=== PATIENT | male | born 1945 | race Caucasian/White ===

== ENCOUNTER 2016-11-02 05:27 | Day surgery (SDC) | payer MEDICARE, OTHER ==
[~2016-11-02] VITALS: Ht 180.3 cm; Wt 101.3 kg
[~2016-11-02 05:27] MED LIST: ASPI-557 PO; ATOR10TA64 PO; FAMO20TA7 PO; NADO40TA PO; VENL150C2 PO; [UNRECOGNIZED DRUG - CODE] PO
--- OUTSIDE RECORDS SUMMARY | 2016-11-02 05:32 | XMS REPORT | Continuity of Care Document ---
Author Author [facility] Organization [facility] Address Unknown Phone Unavailable Allergies Active Description Code Type Severity Reaction Onset Reported/Identified Relationship to Patient Clinical Status Yes ibuprofen NKMA N/A N/A 12/16/2013 Medications Problems Procedures Results Encounters ACCT No. Visit Date/Time Discharge Status Pt. Type Provider Facility Loc./Unit Complaint [id number] 09/16/2014 13:36:00 2014 23:59:00 DIS Outpatient [facility] CP MARIIA CPAP/SUPPLIES/PST BLOX
--- OUTSIDE RECORDS SUMMARY | 2016-11-02 05:32 | XMS REPORT | Referral Summary ---
Author Author [facility] [place] Organization [facility] [place] Address Unknown Phone Unavailable Care Team Providers Care Bilingual Recruiter Name Role Phone Katharina Hennessy Primary Care Physician [phone] Encounter Date(s): 11/17/15 - 11/17/15 [facility] [place] [address], [place] [address] Discharge Diagnosis: CHRISTIANNE on CPAP Discharge Disposition: 01-Home or Self Care Attending Physician: Camila Rg Admitting Physician: Camila Rg Vital Signs Most recent to 1 oldest [Reference Range]: Peripheral Pulse 65 bpm Rate [60-100 bpm] (11/17/15 9:53 AM) Blood Pressure 124/76 mmHg [90-140/60-90 mmHg] (11/17/15 9:53 AM) SpO2 97 % (11/17/15 9:53 AM) Problem List Condition Effective Dates Status Health Status Informant Bronchitis(Confirmed Active ) High Active cholesterol(Confirme d) Hypertension(Confirm Active ed) Head Active trauma(Confirmed) Kidney Active disease(Confirmed) Kidney Active stones(Confirmed) 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) CHRISTIANNE on Active CPAP(Confirmed) OA Active (osteoarthritis)(Con firmed) Skin Active conditions(Confirmed ) Tobacco Active patient user(Confirmed) Allergies, Adverse Reactions, Alerts Substance Reaction Severity Status ibuprofen Active Medications aspirin 81 mg, Daily, 0 Refill(s) Start Date: 09/16/14 Status: Ordered Lipitor 10 mg oral tablet 1 tabs, Oral, Daily Start Date: 09/13/14 Status: Ordered nadolol 40 mg, Oral, Daily, 0 Refill(s) Start Date: 09/16/14 Status: Ordered Results No data available for this section Immunizations No data available for this section Procedures Procedure Date Related Diagnosis Body Site Epicondal bilateral elbows knee reconstruction, right Removal of screws from bone, rt castillo Ruptured disc, L2-3 Shoulder reconstruction, right Social History Social History Type Response Smoking Status Current every day smoker; Type: Cigars; Number of years: 11 15 cigars x1yr. Assessment and Plan Extracted from: Title: Office Visit Note Author: Camila Rg Date: 11/17/15 Assessment/Plan CHRISTIANNE on CPAP - Adequate treatment with CPAP symptomatically and objectively at current pressure withexcellent adherence to therapy. Continue CPAP with all sleep at 11cm. Work with RT for sizing of Airfit P10. Order to [employer] for supplies. -CPAP download reviewed with the patient and patient is complying with and benefitting from treatment. -Avoid driving , partaking in hazardous activities, or operating heavy machinery if drowsy. -Continue appropriate cleaning of the machine/humidifier and update of all supplies including mask , tubing , and filters . -Return for follow-up in [address] Joy . Return/call sooner if any problems arise in the meantime.
--- OUTSIDE RECORDS SUMMARY | 2016-11-02 05:32 | XMS REPORT | Referral Summary ---
Author Organization Unknown Address Unknown Phone Unavailable Care Team Providers Care Leather Goods Assembler Name Role Phone Katharina Hennessy Primary Care Physician [phone] Encounter VC Date(s): 09/16/14 - 09/16/14 [facility] [place] [id number], [place] [address] Discharge Disposition: Home or Self Care Attending Physician: Camila Rg Admitting Physician: Camila Rg Vital Signs Most recent to 1 oldest [Reference Range]: Peripheral Pulse 61 bpm Rate [60-100 bpm] (09/16/14 1:50 PM) Blood Pressure 138/78 mmHg [90-140/60-90 mmHg] (09/16/14 1:50 PM) Most recent to 1 oldest [Reference Range]: SpO2 94 % (09/16/14 1:50 PM) Problem List Condition Effective Dates Status Health Status Informant Bronchitis(Confirmed Active ) High Active cholesterol(Confirme d) Hypertension(Confirm Active ed) Head Active trauma(Confirmed) Kidney Active disease(Confirmed) Kidney Active stones(Confirmed) 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) OA Active (osteoarthritis)(Con firmed) Skin Active conditions(Confirmed ) Tobacco Active patient user(Confirmed) Allergies, Adverse Reactions, Alerts Substance Reaction Severity Status ibuprofen Active Medications aspirin 325 mg, Daily, 0 Refill(s) Start Date: 09/16/14 Status: Ordered Lipitor 10 mg oral tablet 1 tabs, Oral, Daily Start Date: 09/13/14 Status: Ordered nadolol Oral, Daily, 0 Refill(s) Start Date: 09/16/14 Status: Ordered Results No data available for this section Immunizations No data available for this section Procedures Procedure Date Related Diagnosis Body Site Epicondal bilateral elbows knee reconstruction, right Removal of screws from bone, rt csatillo Ruptured disc, L2-3 Shoulder reconstruction, right Social History Social History Type Response Smoking Status Current every day smoker; Type: Cigars; Number of years: 11 15 cigars x1yr. Assessment and Plan No data available for this section
--- OUTSIDE RECORDS SUMMARY | 2016-11-02 05:32 | XMS REPORT | Referral Summary ---
Author Author [facility] [place] Organization [facility] [place] [facility] [place] Address Unknown Phone Unavailable Care Team Providers Care Operator Maintainer Name Role Phone Katharina Hennessy Primary Care Physician [phone] Encounter Date(s): 11/17/15 - 11/17/15 [facility] [address], [place] [address] Discharge Disposition: 01-Home or Self Care Attending Physician: Camila Rg Vital Signs No data available for this section Problem List Condition Effective Dates Status Health [...] x1yr. Assessment and Plan Extracted from: Title: CPAP MASK Author: Aixa Claudio REAL ESTATE FIRM MANAGER Date: 3/31/16 Cpap mask fit, patient would like to try the Airfit p10:med nasal pillow mask.
[2016-11-02 06:01] VITALS: BP 149/83; PULSE 69; RESP 14; TEMP 97.5; O2SAT 92; Ht 180.3 cm; Wt 101.3 kg
[2016-11-02] MEDS ORDERED: LIDOCAINE 1% (10mg/ml) 2ml SDV INJ ONE (06:45)
[2016-11-02] MEDS ORDERED: LIDOCAINE 1% (10mg/ml) 5ml VIAL INJ ONE (06:45)
[2016-11-02] MEDS ORDERED: LR 1,000 ML IV PRN (07:00)
--- NOTE | 2016-11-02 07:12 | ANESPREOP ---
Anesthesia Record Date and Time DATE: 11/02/16 TIME: 07:03 Pre-Op Diagnosis Hemoccult positive stools, GERD Proposed Surgical Procedure EGD & COLONOSCOPY NPO since: > MN Allergies: Coded Allergies: Zinc (Verified Allergy, Unknown, BLISTERS, 02/09/13) oxycodone HCl (Verified Allergy, Unknown, HIVES, 02/09/13) ibuprofen (Verified Adverse Reaction, Unknown, KIDNEY PAIN, 02/09/13) Ht/Wt/BMI Height: 5 ' 11.00 " Weight: 101.300 kg BMI: 31.2 kg/m2 Vital Signs Date Time Temp Pulse Resp B/P Pulse Ox O2 Delivery O2 Flow Rate FiO2 11/02/16 06:01 97.5 69 14 149/83 92 Room Air Medications Inpatient Medications Current Medications Medications (Trade) Dose Ordered Sig/Isela Start Time Stop Time Status Last Admin Dose Admin Lactated Ringer's (Lactated Ringers) 1,000 ml @ 50 mls/hr Q20H PRN 11/02/16 07:00 11/02/16 06:35 50 MLS/HR Aspirin (Aspir 81) 81 Mg Tablet.dr, 1 TAB PO DAILY, (Reported) Last Taken: on 11/01/16 Atorvastatin Calcium (Atorvastatin Calcium) 10 Mg Tablet, 1 TAB PO HS, (Reported) Last Taken: on 11/01/16 Famotidine (Pepcid) 20 Mg Tablet, 1 TAB PO DAILY PRN for ACID REFLUX, (Reported) Last Taken: on 10/26/16 Nadolol (Nadolol) 40 Mg Tablet, 1 TAB PO HS, ( Reported) Last Taken: on 11/01/16 Venlafaxine HCl (Effexor Xr) 150 Mg Cap.er.24h, 150 MG PO WB, (Reported) Last Taken: on 11/01/16 [Ic5] , 4 TAB PO DAILY, (Reported) Currently on Beta Micaela: Yes Beta Micaela Last Taken: 11/01 HS Medical/Surgical History Anesthesia PMH: Reports: *Diabetes (DIET CONTROLLED), *Hypertension, *RI (1998) , Arthritis (OA; LEWIS IN BACK), Back Problems (L2-3 surgery), Cancer (HX TESTICULAR CA), Reflux, Sleep Apnea (CPAP MACHINE), Denies: *Angina, *Dyspnea, Anesthesia Reactions (NO AIRWAY ISSUES), Asthma, Blood Transfusion Reac, CHF, COPD, CVA/Stroke/TIA, Clotting Problems, Deep Vein Thrombosis, Glaucoma, Hepatitis, Hiatal Hernia, Malignant Hyperthermia, Pneumonia (HX OF MORE THAN 30 YRS AGO), Renal Disease, Seizures, Thyroid Disease, Tuberculosis Smoking Status: Former smoker (quit 08/18/16) Has pt. smoked today?: No Use Chewing Tobacco?: No Substance Use Type: does not use Alcohol Intake: none Past Surgical History Orthopedic Surgeries: Yes - LT TKR, RT ROTATOR CUFF REP; CTR; LT ELBOW; RT KNEE RECONST;RT ELBOW Abdominal Surgeries: Yes Genitourinary Surgeries: No Cardiac Surgeries: Yes - HEART CATH 1998 Endocrine Surgeries: No Reproductive Surgeries: Yes - EXC LEIOMYOSARCOMA OF SCROTUM 1997 Neurological Surgeries: Yes - ' Ear Surgeries: No Nose Surgeries: No Throat Surgeries: No Other Surgeries: Yes - COLONOSCOPY,EGD Anesthesia Adverse Reactions: FOUND none Family Hx of Anesthesia Advers: none Hx of Motion Sickness: No Physical Exam Respiratory: Lungs clear Cardiovascular: FOUND Regular rate, rhythm, FOUND No murmur Airway Assessment Mallampati Score: II Neck Extension: Good Teeth: Poor Dentation Overall Assessment: No Airway Concerns ASA: 2 Plan Anesthesia Plan: TIVA Discussion Discussed risks/options/alternatives of anesthesia and questions answered. Patient consents. Nursing pain assessment noted. Present: Spouse Attestation Statement Prior to the delivery of any anesthetic medication, I examined the patient, developed the plan, obtained the patient's consent and discussed the risk and benefits of the procedure with the patient/guardian. LAURO WICK LOGGING SPECIALIST STUDENT Nov 02, 2016 07:06
[2016-11-02] MEDS ORDERED: PROPOFOL 500mg 50 ML IV ONE (07:17)
[2016-11-02] MEDS ORDERED: FENTANYL 100mcg/2ml INJECTION ONE (07:19)
[2016-11-02] MEDS ORDERED: MIDAZOLAM 2mg/2ml INJECTION ONE (07:19)
[2016-11-02] MEDS ORDERED: LIDOCAINE (2%) 100 MG/5 ML PF SYRINGE IV ONE (07:22)
[2016-11-02] MEDS ORDERED: LIDOCAINE VISCOUS 2% Oral Soln 15ml UD ONE (07:30)
[2016-11-02 08:15] VITALS: BP 106/63; PULSE 63; RESP 16; TEMP 98.4; O2SAT 95
--- NOTE | 2016-11-02 08:15 | GSPOSTPROC ---
Immediate Operative Note DATE: 11/02/16 TIME: 08:13 Postop Diagnosis: Hemoccult positive stool,Colon polyp Surgical Procedure: EGD, C-scope w/Biopsies Surgeon: Albert ASA: 2 JEANNE BERNAL MD Nov 02, 2016 08:15
[2016-11-02 08:30] VITALS: BP 109/63; PULSE 60; RESP 13; O2SAT 94
[2016-11-02 08:45] VITALS: BP 110/70; PULSE 67; RESP 11; O2SAT 94
--- NOTE | 2016-11-02 08:47 | ANESPO ---
Post-Op Note Date 11/02/16 Time: 08:27 Status Pt Participated in Evaluation: Pt participated in person Vital Signs Date Time Temp Pulse Resp B/P Pulse Ox O2 Delivery O2 Flow Rate FiO2 11/02/16 08:30 60 13 109/63 94 Room Air 11/02/16 08:15 98.4 Respiratory Function: Airway patent Cardiovascular Function: Regular pulse Mental Status: Alert/oriented Pain Level Intensity: 0 Hydration: Taking po fluids Complications during Recovery None apparent Follow-Up Instructions Instructions Per Surgeon EMILY SANTILLAN CRNA Nov 02, 2016 08:47
[2016-11-02 09:00] VITALS: BP 135/71; PULSE 63; RESP 19; O2SAT 94
[2016-11-02 09:15] VITALS: BP 134/69; PULSE 62; RESP 20; O2SAT 94
--- NOTE | 2016-11-02 11:02 | OPNOTEF ---
DATE OF OPERATION 11/02/2016 PREOPERATIVE DIAGNOSES 1. History of recent Hemoccult positive stool. 2. Gastroesophageal reflux disease. 3. Sigmoid colon diverticulosis demonstrated on 12/03/2012 CT renal scan. 4. History of hematochezia during bowel prep for colonoscopy. POSTOPERATIVE DIAGNOSES 1. Gastroesophageal reflux disease. 2. Normal findings at upper gastrointestinal tract at esophagogastroduodenoscopy. 3. Sigmoid colon diverticulosis. 4. Small colon polyp. 5. Internal hemorrhoids. 6. History of hematochezia during bowel prep for colonoscopy. 7. Hemoccult positive stool. OPERATION Esophagogastroduodenoscopy and total colonoscopy with biopsies. SURGEON Jovan Price MD ANESTHESIA TIVA ASA CLASS 3 FINDINGS Findings at the upper gastrointestinal tract were normal at esophagogastroduodenoscopy. The esophagus appeared normal. There was no distal esophagitis. There were no esophageal erosions or ulcers. There were no Glynn's esophagus changes at the esophagus. Gastric and duodenal mucosa appeared normal. No source for bleeding which would lead to Hemoccult positive stool was found at esophagogastroduodenoscopy. There were no colon or rectal tumors. The patient did have one small polyp located 10 cm proximal to the anal verge. There was no melanosis coli. There were no colonic angiodysplasia lesions. The patient does have some mild sigmoid colon diverticulosis. There was no inflammatory bowel disease at the colon or rectum. The patient does have some internal hemorrhoids. There was some bleeding associated with the internal hemorrhoids. This was thought to be the source for the hematochezia which the patient experienced during the bowel prep for the colonoscopy procedure. The internal hemorrhoids were also thought to be the source for bleeding responsible for the Hemoccult positive stool. No blood was seen anywhere at the colon or rectum. There was no anal fissure present. DESCRIPTION OF OPERATION The patient was brought to the endoscopy room. The patient was placed on a cart in the endoscopy room. Topical anesthesia was achieved at the oropharynx in the usual manner. The patient was placed in left lateral recumbent position on the cart. The patient was premedicated with intravenous sedation medication administered by the nurse supervisor home restoration service. The Olympus upper GI endoscope was used. The upper GI endoscope was introduced into the esophagus. The upper GI endoscope was advanced down through the esophagus and stomach and into the duodenum. The upper GI endoscope was then withdrawn from the duodenum back into the stomach. The upper GI endoscope was retroflexed and the gastroesophageal junction was viewed from below. The upper GI endoscope was straightened out. The stomach was examined further. The upper GI endoscope was then withdrawn out through the stomach and esophagus and removed from the patient. The patient was kept in left lateral recumbent position on the cart in the endoscopy room. The patient continued to receive intravenous sedation medication administered by the nurse supervisor home restoration service. Total colonoscopy was performed. The Olympus colonoscope was used. The colonoscope was introduced into the rectum. The colonoscope was advanced up through the rectum. The polyp located 10 cm proximal to the anal verge was identified. This polyp was removed with a couple of bites of the cold endoscopic biopsy forceps and submitted as a specimen for study by the pathologist. The colonoscope was then advanced the remainder the way up through the colon all the way up to the cecum. The appendiceal orifice was visualized. The ileocecal valve was visualized. The colonoscope was then withdrawn out through the colon and rectum and removed from the patient. Digital rectal examination was performed. Findings throughout the procedure were as described above. The patient did continue to receive intravenous sedation medication administered by the nurse supervisor home restoration service throughout the operation. The patient did tolerate the operation well. BRONSON
== END 2016-11-02 09:22 | disposition home or self-care (01) ==
LOC: SCU 05:27
PROVIDERS: ATTEND Surgery
DX: K63.5 Polyp of colon (principal); K64.8 Other hemorrhoids; R19.5 Other fecal abnormalities; K57.30 Diverticulosis of large intestine without perforation or abscess without bleeding; K21.9 Gastro-esophageal reflux disease without esophagitis; I25.10 Atherosclerotic heart disease of native coronary artery without angina pectoris; I10 Essential (primary) hypertension; E78.5 Hyperlipidemia, unspecified; G47.30 Sleep apnea, unspecified; G89.29 Other chronic pain; F43.10 Post-traumatic stress disorder, unspecified; N40.0 Benign prostatic hyperplasia without lower urinary tract symptoms; Z79.82 Long term (current) use of aspirin; Z79.899 Other long term (current) drug therapy; Z87.891 Personal history of nicotine dependence
CPT/HCPCS: 43235; 45380; 82948; J2250; J3010; J7120; 88305